=== PATIENT | female | born 1980 | race Caucasian/White ===

== ENCOUNTER 2017-01-25 12:02 | Emergency (ER) | payer SELFPAY ==
[2017-01-25] MEDS ORDERED: ACETAMINOPHEN 500 MG TABLET PO ONE (12:15)
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
== END 2017-01-25 13:22 | disposition home or self-care (01) ==
LOC: ER 12:02
DX: S62.347A Nondisplaced fracture of base of fifth metacarpal bone, left hand, initial encounter for closed fracture (principal); S60.222A Contusion of left hand, initial encounter; V49.40XA Driver injured in collision with unspecified motor vehicles in traffic accident, initial encounter; Y92.415 Exit ramp or entrance ramp of street or highway as the place of occurrence of the external cause
CPT/HCPCS: 99283

== ENCOUNTER 2017-01-31 12:09 | Emergency (ER) | payer SELFPAY ==
--- NOTE | 2017-01-31 12:26 | Emergency Department Record ---
History of Present Illness - General Chief Complaint: Recheck - Other Stated Complaint: RECHECK ARM/SWOLLEN Time Seen by Provider: 01/31/17 12:21 Source: Patient Mode of arrival: Ambulatory Limitations: No limitations - History of Present Illness Initial Comments: The patient is here to recheck her L hand. She was diagnosed with a hand fx last week and does have an appointment with her PCP in 2 days. She now would like another bacilio wrap for her hand because she took one off and needs an extended work note. She denies any new injury or issue. She has been using her L hand at work and now is is mildly swollen. MD Complaint: Other Onset/Timin -: Week(s) Initial Visit For: Other Returns Today for: Other Symptoms Since Prior Visit: Other Associated Symptoms: None Treatments Prior to Arrival: Given pain medications on initial visit - Related Data Allergies Allergy/AdvReac Type Severity Reaction Status Date / Time No Known Drug Allergies Allergy Verified 01/25/17 12:12 Travel Screening - Travel/Exposure Within Last 30 Days Have you traveled within the last 30 days?: No Review of Systems Constitutional: Denies: Chills, Fever Past Medical History - SOCIAL HISTORY Smoking Status: Heavy tobacco smoker (>10/day) Alcohol Use: None Drug Use: None - RESPIRATORY Hx Respiratory Disorders: No - CARDIOVASCULAR Hx Cardio Disorders: No - NEURO Hx Neuro Disorders: No - GI Hx GI Disorders: No - Hx Genitourinary Disorders: No - ENDOCRINE Hx Endocrine Disorders: No - MUSCULOSKELETAL Hx Musculoskeletal Disorders: No - PSYCH Hx Psych Problems: No - HEMATOLOGY/ONCOLOGY Hx Hematology/Oncology Disorders: No Family Medical History Any Significant Family History?: No Physical Exam - General General Appearance: Alert, Oriented x3, Cooperative, No acute distress - Head Head exam: Atraumatic, Normocephalic - Extremities Extremities exam: Normal capillary refill. negative: Normal inspection (There is very slight edema to her fingers but they have normal sensation and color and temp. The splint is in very good shape.), Full ROM, Tenderness Course Vital Signs 01/31/17 12:16 Temperature 98.1 F Pulse Rate 60 Respiratory 18 Rate Blood Pressure 119/57 Pulse Ox 100 - Reevaluation(s) Reevaluation #1: I did explain to the patient that she is to NOT use the hand and arm at work for 1 week and she is to see her PCP in 2 days as planned. 08/14/17 12:34 Disposition Disposition: Discharge Clinical Impression: Metacarpal bone fracture Qualifiers: Encounter type: sequela Metacarpal bone: fifth Fracture type: closed Metacarpal location: unspecified portion of metacarpal Fracture alignment: nondisplaced Laterality: left Qualified Code(s): S62.307S - Unspecified fracture of fifth metacarpal bone, left hand, sequela Disposition: Home, Self-Care Condition: (1) Good Instructions: Hand Fracture (ED) Additional Instructions: Please ice and elevate your hand when possible and do not use it at work. Please use OTC pain medicines as needed. Return to the ER for any problems. Forms: Patient Portal Access Time of Disposition: 12:36 Quality - Quality Measures Quality Measures: N/A - Blood Pressure Screening View Details: Yes Does Patient Have Any of the Following: No Blood Pressure Classification: Normal BP Reading Systolic Measurement: 119 Diastolic Measurement: 57 Screening for High Blood Pressure: < Normal BP, F/U Not Required > [G8783]
== END 2017-01-31 12:51 | disposition home or self-care (01) ==
LOC: ER 12:09
DX: S62.307A Unspecified fracture of fifth metacarpal bone, left hand, initial encounter for closed fracture (principal); S60.222A Contusion of left hand, initial encounter; V49.40XA Driver injured in collision with unspecified motor vehicles in traffic accident, initial encounter
CPT/HCPCS: 99282